=== PATIENT | male | born 1965 | race Caucasian/White ===

== ENCOUNTER → 2017-09-13 15:09 | Outpatient (CLI) | payer BC, SELFPAY ==
[2017-09-13 16:04] LABS: Free T4 (Free Thyroxine) 1.25 ng/dl (0.76-1.46); Thyroid Stimulating Hormone 0.61 uIU/ml (0.358-3.740)
[2017-09-17 17:12] LABS: Calcitonin <2.0 pg/mL (0.0-8.4)
== END ==
PROVIDERS: PCP Otolaryngology; Visit Provider Otolaryngology
DX: E03.9 Hypothyroidism, unspecified (principal)
CPT/HCPCS: 36415; 82308; 84439; 84443

== ENCOUNTER → 2017-10-05 08:25 | Outpatient (CLI) | payer BC, SELFPAY ==
[2017-10-05 09:13] LABS: Creatinine,Urine Random 283 mg/dL (20-320)
[2017-10-05 09:50] LABS: Anion Gap 13.9 mEq/L (5-15); Blood Urea Nitrogen 14 mg/dL (7-18); Carbon Dioxide 27 mmol/L (21.0-32.0); Chloride 105 mmol/L (98-107); Chol/HDL Ratio 4.8 (1-3.5); Cholesterol 220 mg/dL (140-200); Creatinine,Serum 0.89 mg/dL (0.70-1.30); Estimated Glomerular Filt Rate 90 ml/min (>60); GFR (African American) 109 ML/MIN (>60); Glucose 94 mg/dL (74-106); HDL Cholesterol 46 mg/dL (27-67); LDL Cholesterol 151 mg/dL (0-130); Potassium 4.9 mmoL/L (3.5-5.1); Sodium 141 mmol/L (136-145); Triglycerides 113 mg/dL (30-200); VLDL Cholesterol 23 mg/dL (0-40)
[2017-10-08 10:52] LABS: Vitamin D 25 Hydroxy 34.4 ng/mL (30.0-100.0)
[2017-10-08 10:54] LABS: Microalbumin, Urine 11.5 ug/mL (Not Estab.)
== END ==
PROVIDERS: PCP Family Medicine; Visit Provider Family Medicine
DX: I10 Essential (primary) hypertension (principal); E78.2 Mixed hyperlipidemia; Z86.39 Personal history of other endocrine, nutritional and metabolic disease
CPT/HCPCS: 36415; 80048; 80061; 82043; 82570; 82652

== ENCOUNTER 2017-11-08 09:29 | Day surgery (SDC) | payer BC, SELFPAY ==
[2017-11-02 15:42] VITALS: BMI 27.1
[2017-11-08] VITALS (12 sets, daily range): BP systolic 100–138; BP diastolic 63–88; PULSE 69–86; RESP 16–18; TEMP 36.6; O2SAT 92–99
--- NOTE | 2017-11-08 11:28 | HMH.PROC ---
[facility] Procedure Note Procedure Note:: Colonoscopy Procedure Report: Colonoscopy with cold snare polypectomy Endoscopist: Otoniel Fox II, MD Referring physician: Dada Tesfaye MD Date of Procedure: November 08, 2017 Equipment: Olympus 180 variable stiffness pediatric colonoscope Sedation: Fentanyl 150 mg IV/ Versed 9 mg IV Indication: Mr. Olsen is a 52-year-old gentleman who is here for initial screening colonoscopy. He reports no abdominal pain, weight loss, change in his bowel habits or rectal bleeding. He reports no family history of colon cancer. Procedure: Prior to the procedure, a history and physical exam was performed, and patient's medications and allergies were reviewed. The risks, benefits and alternatives of the sedation and procedure were discussed with the patient. All questions were answered and informed consent was obtained. The patient was brought to the procedure room. Patient identification and proposed procedure were verified by the physician and the nurse. The patient was placed in a left lateral decubitus position and the scope was passed under direct vision. Throughout the procedure, the patient's blood pressure, pulse, and oxygen saturations were monitored continuously. The colonoscopy was accomplished without difficulty. The patient tolerated the procedure well. Findings: On digital rectal examination there was normal rectal tone. There were no external hemorrhoids. The prostate was 2+, smooth, mildly firm but symmetric without nodules. The colonoscope was introduced through the anal canal to the rectum and advanced to the cecum. The ileocecal valve and appendiceal orifice were identified. The scope was advanced a short distance into the ileum which appeared grossly normal. The scope was then withdrawn into the colon. There were 3 diminutive colon polyps identified in the 3-5 mm. These ranged in size from ascending ?1 and descending ?2 and were all removed via cold snare polypectomy. The remaining cecum, ascending, transverse, descending, sigmoid and rectum were grossly normal. There were no other mucosal abnormalities identified. Upon retroflexion within the rectum there were grade 1 internal hemorrhoids. Impression: 1. Diminutive colonic polyps ?3 2. Grade 1 internal hemorrhoids Plan: I will follow up the polyp pathology and recommend repeat colonoscopy again in 5-10 years based upon the polyp histology. I would encourage fiber supplementation on a long-term daily maintenance basis.
--- NOTE | 2017-11-08 11:31 | P.PCN_ITS ---
[facility] Procedure Note Procedure Note:: Colonoscopy Procedure Report: Colonoscopy with cold snare polypectomy Endoscopist: Otoniel Fox II, MD Referring physician: Dada Tesfaye MD Date of Procedure: November 08, 2017 Equipment: Olympus 180 variable stiffness pediatric colonoscope Sedation: Fentanyl 150 mg IV/ Versed 9 mg IV Indication: Mr. Olsen is a 52-year-old gentleman who is here for initial screening colonoscopy. He reports no abdominal pain, weight loss, change in his bowel habits or rectal bleeding. He reports no family history of colon cancer. Procedure: Prior to the procedure, a history and physical exam was performed, and patient' s medications and allergies were reviewed. The risks, benefits and alternatives of the sedation and procedure were discussed with the patient. All questions were answered and informed consent was obtained. The patient was brought to the procedure room. Patient identification and proposed procedure were verified by the physician and the nurse. The patient was placed in a left lateral decubitus position and the scope was passed under direct vision. Throughout the procedure, the patient's blood pressure, pulse, and oxygen saturations were monitored continuously. The colonoscopy was accomplished without difficulty. The patient tolerated the procedure well. Findings: On digital rectal examination there was normal rectal tone. There were no external hemorrhoids. The prostate was 2+, smooth, mildly firm but symmetric without nodules. The colonoscope was introduced through the anal canal to the rectum and advanced to the cecum. The ileocecal valve and appendiceal orifice were identified. The scope was advanced a short distance into the ileum which appeared grossly normal. The scope was then withdrawn into the colon. There were 3 diminutive colon polyps identified in the 3-5 mm. These ranged in size from ascending ?1 and descending ?2 and were all removed via cold snare polypectomy. The remaining cecum, ascending, transverse, descending, sigmoid and rectum were grossly normal. There were no other mucosal abnormalities identified. Upon retroflexion within the rectum there were grade 1 internal hemorrhoids. Impression: 1. Diminutive colonic polyps ?3 2. Grade 1 internal hemorrhoids Plan: I will follow up the polyp pathology and recommend repeat colonoscopy again in 5 -10 years based upon the polyp histology. I would encourage fiber supplementation on a long-term daily maintenance basis.
== END 2017-11-08 12:15 | disposition home or self-care (01) ==
LOC: OUTP 09:31
PROVIDERS: Family Provider Family Medicine; PCP Family Medicine; Visit Provider Internal Medicine Gastroenterology
PROC: 0DJD8ZZ Inspection of Lower Intestinal Tract, Via Natural or Artificial Opening Endoscopic (ICD-10-PCS; CPT 45378; principal; 2017-11-08 10:30)
DX: Z12.11 Encounter for screening for malignant neoplasm of colon (principal); K63.5 Polyp of colon; K64.0 First degree hemorrhoids
CPT/HCPCS: 45380; 99152

== ENCOUNTER 2017-11-24 13:55 | Emergency (ER) | payer OTHER, BC, SELFPAY ==
--- NOTE | 2017-11-24 14:15 | XR_ITS ---
XR hand LT min 3V HISTORY: Pain following injury ITS.REASON: injury ORDERING PHYSICIAN: Gail Juarez PATIENT AGE: 52 years COMPARISON: None FINDINGS: No fracture or dislocation. No lytic or blastic change. There is normal mineralization.. The joint spaces are well-preserved. No significant degenerative/arthritic changes. Subarticular cystic changes are present involving the scaphoid, lunate, distal aspect of the third metacarpal, and distal aspect of the middle phalanx of the third digit. IMPRESSION: 1. No acute fracture. 2. Scattered subarticular cystic changes
[2017-11-24 14:16] VITALS: BP 136/91; PULSE 83; RESP 18; TEMP 36.8; O2SAT 94; BMI 27.1
--- NOTE | 2017-11-24 14:38 | HMH.EDUTC ---
[facility] [place] Disposition Clinical Impression: Contusion of left hand Qualifiers: Encounter type: initial encounter Qualified Code(s): S60.222A - Contusion of left hand, initial encounter Abrasion of left hand Qualifiers: Encounter type: initial encounter Qualified Code(s): S60.512A - Abrasion of left hand, initial encounter Disposition: Home, Self-Care Condition on Discharge: Good Instructions: DI for Contusion, DI for Abrasion, Tetanus, Diphtheria, Pertussis (Tdap) Vaccine Additional Instructions: * use as tolerated. No restrictions. See workman's comp form * Rest * ice 15-20 mins 3-4 times a day * Elevate as discussed as much as possible to help reduce swelling and therefore, pain * Ibuprofen every 6 hours as needed for pain and inflammation. If you need something more, you can take tylenol every 4 hours as needed as long as your primary care provider has told you it is ok to take both. * Clean with mild soap and water. Uncovered at home but a work or if working at home, keep covered to avoid risk for infection. * Monitor closely. FU immediately for new or worsening symptoms ( including but not limited to redness, swelling, red streaking, fever, chills). * YOU HAD A TDAP VACCINE, 11/24/17. Notify your primary care and update your personal records. Referrals: Dada Tesfaye MD [Primary Care Provider] - (as needed for new or worsening symptoms. Should resolve/heal over the next 7 days and if not, be sure to follow up.) Time of Disposition: 15:24 Medical Decision Making - [place] Inquiry Pt receiving controlled substance: No Vital Signs: 11/24/17 14:16 11/24/17 15:25 Temperature 98.2 F 98.2 F Temperature Source Temporal Artery Scan Pulse Rate 83 Pulse Rate [Brachial] 83 Respiratory Rate 18 18 Blood Pressure 136/91 Blood Pressure [Right Arm] 136/91 Blood Pressure Mean [Right Arm] 106 Blood Pressure Position [Right Arm] Sitting 02 Sat by Pulse Oximetry 94 L Oxygen Delivery Method Room Air Orders (Tests/Meds): ED MEDICATIONS Discontinued Medications Generic Name Dose Route Start Last Admin Trade Name Freq PRN Reason Stop Dose Admin Tetanus/Reduced Diphtheria/Acell Pertussis 0.5 ml 11/24/17 14:39 11/24/17 14:48 Adacel Tdap 0.5ml Syringe IM 11/24/17 14:40 0.5 ml .ONCE ONE Administration [facility] [place] HPI - General Stated complaint: Workers comp/hit hammer on hand Time Seen by Provider: 11/24/17 14:20 Mode of Arrival: Ambulatory Source of Information: Patient Limitations: No Limitations Description of Symptoms (Recalled from Triage Doc. by RN): INJURY TP LEFT HAND FROM HITTING IT WITH A HAMMER WHILE AT WORK. OCCURRED AROUND 1145, SWELLING AND SMALL ABRASION NOTED. HEENT Symptoms (Recalled from RN notes): No Resp Symptoms (Recalled from RN notes): No Skin Symptoms (Recalled from RN notes): No MS Symptoms (Recalled from RN notes): Yes Functional Status (Recalled from RN notes): NA - History of Present Illness Provider Complaint: c/o left hand pain after hitting it with a hammer today at work aroud 11:45. Hammer caused abrasion. Washed hands around 15-20 minutes following injury. Mild pain. Worse finger movement but still not bad . Hasn't taken or tried anything for pain. Workmen's comp. - Related Data Home Medications Medication Instructions Recorded Confirmed levothyroxine 125 mcg tablet 125 mcg PO QDAY tab 09/13/17 11/08/17 lisinopril 5 mg tablet 5 mg PO QDAY 09/13/17 11/08/17 Atorvastatin Calcium [Atorvastatin 40 mg PO DAILY 11/02/17 11/08/17 40mg Tab] Multivitamin [Multivitamins] 1 each PO DAILY 11/02/17 11/08/17 Allergies Allergy/AdvReac Type Severity Reaction Status Date / Time hydrocodone AdvReac Unknown CONSTIPATION Verified 11/08/17 09:48 (NORMAL SIDE EFFECT) - Worker's Comp Is this a Worker's Comp case?: Yes Is this an H Worker's Comp?: No Is this a [place] Worker's Comp?: No [facility] History I have reviewed the patient's past medical his
[2017-11-24 15:25] VITALS: BP 136/91; PULSE 83; RESP 18; TEMP 36.8; O2SAT 94
== END 2017-11-24 15:26 | disposition home or self-care (01) ==
PROVIDERS: Emergency Provider Nurse Practitioner Family; Family Provider Family Medicine; PCP Family Medicine
DX: S60.222A Contusion of left hand, initial encounter (principal); S60.512A Abrasion of left hand, initial encounter; Z23 Encounter for immunization; W22.8XXA Striking against or struck by other objects, initial encounter; Y92.69 Other specified industrial and construction area as the place of occurrence of the external cause; Y99.0 Civilian activity done for income or pay
CPT/HCPCS: 73130; 90471; 90715; 99201

== ENCOUNTER → 2018-01-18 06:17 | Outpatient (CLI) | payer BC, SELFPAY ==
[2018-01-18 07:00] LABS: Alanine Aminotransferase 42 U/L (12-78); Albumin Level 3.6 gm/dL (3.4-5.0); Alkaline Phosphatase 68 U/L (46-116); Aspartate Amino Transferase 22 U/L (15-37); Bilirubin,Direct 0.1 mg/dL (0.0-0.2); Bilirubin,Indirect 0.3 mg/dL (0.0-0.9); Bilirubin,Total 0.4 mg/dL (0.2-1.0); Chol/HDL Ratio 3.6 (1-3.5); Cholesterol 153 mg/dL (140-200); HDL Cholesterol 43 mg/dL (27-67); LDL Cholesterol 97 mg/dL (0-130); Total Protein,Serum 7.1 gm/dL (6.4-8.2); Triglycerides 67 mg/dL (30-200); VLDL Cholesterol 13 mg/dL (0-40)
== END ==
PROVIDERS: Visit Provider Family Medicine
DX: E78.2 Mixed hyperlipidemia (principal)
CPT/HCPCS: 36415; 80061; 80076

== ENCOUNTER → 2018-06-20 16:08 | Outpatient (CLI) | payer BC, SELFPAY ==
[2018-06-20 18:45] LABS: Free Thyroxine Index 3.1 ug/dL (5.93-13.13); T4 (Thyroxine) 9.8 ug/dl (4.7-13.3); Triiodothryronine (T3) Uptake 32 % (31-39)
[2018-06-22 13:56] LABS: Parathyroid Hormone Intact 32 pg/mL (15-65)
[2018-06-22 14:39] LABS: Calcium, Ionized 5.2 mg/dL (4.5-5.6)
== END ==
PROVIDERS: Family Provider Family Medicine; PCP Family Medicine; Visit Provider Otolaryngology
DX: D49.7 Neoplasm of unspecified behavior of endocrine glands and other parts of nervous system (principal); E03.9 Hypothyroidism, unspecified
CPT/HCPCS: 36415; 82330; 83970; 84436; 84443; 84479

== ENCOUNTER → 2018-06-21 15:53 | Outpatient (CLI) | payer BC, SELFPAY ==
--- NOTE | 2018-06-21 15:54 | XR_ITS ---
XR KUB HISTORY: ITS.REASON: Kidney Stones ORDERING PHYSICIAN: Jermain España MD PATIENT AGE: 53 years COMPARISON: None FINDINGS: The bowel gas pattern is unremarkable. No obvious obstruction.. There is a 3 mm stone overlying the mid and the lower pole the right kidney 3 mm stone in the mid polar region of the left kidney and a 2 mm stone overlying the lower pole of the left kidney. There is an irregular calcific density left pelvic region suspicious for distal ureteral stone. IMPRESSION: 1. Bilateral nephrolithiasis. 2. 6 mm calcific density left pelvic region suspicious for a distal ureteral stone
== END ==
PROVIDERS: PCP Family Medicine; Visit Provider Urology
DX: N20.0 Calculus of kidney (principal)
CPT/HCPCS: 74018

== ENCOUNTER → 2018-07-12 11:14 | Outpatient (CLI) | payer BC, SELFPAY ==
[2018-07-12 14:13] LABS: Prostate Specific Ag Screen 1.4 ng/mL (0.0-4.0)
== END ==
PROVIDERS: Visit Provider Urology
DX: Z80.42 Family history of malignant neoplasm of prostate (principal)
CPT/HCPCS: 36415; G0103

== ENCOUNTER → 2019-02-21 09:37 | Outpatient (CLI) | payer BC, SELFPAY ==
--- NOTE | 2019-02-21 09:43 | XR_ITS ---
XR KUB HISTORY: ITS.REASON: KIDNEY STONES ORDERING PHYSICIAN: Jermain España MD PATIENT AGE: 54 years COMPARISON: 06/21/2018 FINDINGS: There are multiple bilateral renal calculi. The largest stone on the right is in the upper pole at 4 mm. Multiple punctate stones on the left are present from 2 to 3 mm. No obvious ureteral calculi. There is mild sclerosis of left SI joint. IMPRESSION: Bilateral nephrolithiasis probably not significant changed
== END ==
PROVIDERS: PCP Family Medicine; Visit Provider Urology
DX: N20.0 Calculus of kidney (principal)
CPT/HCPCS: 74018

== ENCOUNTER → 2019-07-10 15:37 | Outpatient (CLI) | payer BC, SELFPAY ==
[2019-07-10 18:25] LABS: Free T4 (Free Thyroxine) 1.34 ng/dl (0.76-1.46); Thyroid Stimulating Hormone 0.04 uIU/ml (0.358-3.740)
== END ==
PROVIDERS: Visit Provider Otolaryngology
DX: E03.9 Hypothyroidism, unspecified (principal)
CPT/HCPCS: 36415; 84439; 84443

== ENCOUNTER → 2020-08-13 12:27 | Outpatient (CLI) | payer BC, SELFPAY ==
[2020-08-13 14:06] LABS: Prostate Specific Ag Screen 1.4 ng/ml (0.0-4.0)
--- NOTE | 2020-08-13 15:39 | XR_ITS ---
PROCEDURE: XR KUB CLINICAL INDICATION: KIDNEY STONE Left flank pain with nausea COMPARISON: CT ABDPELWO CT abdomen pelvis wo con from 06/14/2018 FINDINGS: Multiple stones are present in the mid and lower pole of the left kidney and mid polar region of the right kidney measuring 2 3 mm on the left and 4 mm on the right. There is a small calcific density in the right pelvic region which could be due to a ureterovesical junction stone.. Prostate calcifications are present. There are degenerative changes in the lumbar spine and there is some sclerosis of the left SI joint IMPRESSION: Bilateral nephrolithiasis with possible small right ureterovesical junction stone versus phleboliths Dictated by: Donn Warner MD 08/13/2020 16:33 Donn Warner MD in [place] 08/13/2020 16:33
== END ==
PROVIDERS: PCP Family Medicine; Visit Provider Urology
DX: Z12.5 Encounter for screening for malignant neoplasm of prostate (principal); N20.0 Calculus of kidney
CPT/HCPCS: 36415; 74018; G0103

== ENCOUNTER → 2020-10-28 12:10 | Outpatient (CLI) | payer BC, SELFPAY ==
[2020-10-28 14:30] LABS: Free T4 (Free Thyroxine) 1.04 ng/dl (0.78-2.19)
== END ==
PROVIDERS: Visit Provider Otolaryngology
DX: E03.9 Hypothyroidism, unspecified (principal)
CPT/HCPCS: 84439; 84443

== ENCOUNTER → 2021-04-28 12:43 | Outpatient (CLI) | payer BC, SELFPAY ==
[2021-04-28 13:44] LABS: Thyroid Stimulating Hormone 2.19 uIU/mL (0.465-4.68)
[2021-04-28 14:25] LABS: Free T4 (Free Thyroxine) 1.12 ng/dl (0.78-2.19)
== END ==
PROVIDERS: Visit Provider Otolaryngology
DX: E03.9 Hypothyroidism, unspecified (principal)
CPT/HCPCS: 36415; 84439; 84443

== ENCOUNTER → 2021-05-30 11:30 | Outpatient (CLI) | payer BC, SELFPAY ==
[2021-05-30 12:59] LABS: Alanine Aminotransferase 28 U/L (12-78); Albumin Level 4.3 g/dl (3.5-5.0); Albumin/Globulin Ratio 1.5 (1.1-1.8); Alkaline Phosphatase 62 U/L (38-126); Aspartate Amino Transferase 34 U/L (17-59); Bilirubin,Total 0.7 mg/dl (0.2-1.3); Blood Urea Nitrogen 18 mg/dl (9-20); Calcium 9.5 mg/dl (8.4-10.2); Carbon Dioxide 29 mmol/L (22.0-30.0); Chloride 101 mmol/L (98-107); Chol/HDL Ratio 3.1 (1-3.5); Cholesterol 166 mg/dl (140-200); Estimated Glomerular Filt Rate 78 ml/min (>60); GFR (African American) 94 ML/MIN (>60); Globulin 2.8 g/dL (1.3-3.2); Glucose 94 mg/dl (74-100); HDL Cholesterol 53 mg/dl (40-60); Sodium 139 mmol/L (136-145); Total Protein,Serum 7.1 g/dl (6.3-8.2); Triglycerides 63 mg/dl (30-150); VLDL Cholesterol 13 mg/dL (0-40)
[2021-05-30 13:10] LABS: Direct LDL Cholesterol 92.74 mg/dL (100-129)
[2021-05-30 13:29] LABS: Prostate Specific Ag Screen 1.4 ng/ml (0.0-4.0)
== END ==
PROVIDERS: Visit Provider Nurse Practitioner Family
DX: I10 Essential (primary) hypertension (principal); E78.5 Hyperlipidemia, unspecified; Z12.5 Encounter for screening for malignant neoplasm of prostate
CPT/HCPCS: 36415; 80053; 80061; G0103

== ENCOUNTER 2021-06-02 20:17 | Emergency (ER) | payer BC, SELFPAY ==
[2021-06-02 20:45] VITALS: BP 118/79; PULSE 77; RESP 20; TEMP 36.9; O2SAT 98; BMI 25.0
--- NOTE | 2021-06-02 21:34 | HMH.EDUTC ---
[facility] [place] Clinical Impression: Viral syndrome Disposition: Home, Self-Care Condition on Discharge: Good Instructions: DI for Viral Syndrome, DI for COVID-19 (Suspected or Confirmed ), Preventing the Spread of Coronavirus Discharge Instructions Additional Instructions: *Monitor Temp, Over the counter Motrin or Tylenol as directed/as needed Tylenol every 4 hours and Motrin every 6 hours (as long as your family doctor has told you that you can take it) for fever or pain. and straight to ER if unable to lower temp less than 101.0 after medication given *Warm salt water gargles may help to soothe the throat *Throat Lozenges *Warm fluids like tea with honey may help to soothe the throat *Sleep elevated *Humidifier/Vaporizer Follow up IMMEDIATELY for new or worsening symptoms or no Noticeable improvement over the next 48-72 hours. 911 for difficulty breathing or swallowing You were tested for today for COVID19 your test result should be back in the next 24-48 hours, you was given handout on how to [facility] to check your results if you have trouble you may call the [facility] You was given a handout with instructions for Self Quarantine and Self isolation for while you wait on test results and what to do if they are positive If you are positive the Health Dept will be contacting you also Make sure to take your Vitamins Vit. C Vit D and Zinc if you can take them Referrals: Dada Tesfaye MD [Primary Care Provider] - As needed Forms: Work/School Release Time of Disposition: 21:37 Medical Decision Making - [place] Inquiry Pt receiving controlled substance: No [place] was queried for this patient: No Vital Signs: 06/02/21 20:45 Temperature 98.4 F Temperature Source Oral Pulse Rate [Right Brachial] 77 Respiratory Rate 20 Blood Pressure [Right Arm] 118/79 Blood Pressure Mean [Right Arm] 92 Blood Pressure Source [Right Arm] Automatic Cuff Blood Pressure Position [Right Arm] Sitting 02 Sat by Pulse Oximetry 98 Oxygen Delivery Method Room Air - Lab Data Lab results reviewed: Yes: I reviewed the patient's lab results. Lab Results 06/02/21 21:49: Influenza Type A Ag Negative, Influenza Type B Ag Negative Orders (Tests/Meds): ORDERS Category Date Time Status Covid-19 Nasal PCR ([facility]) Routine Lab 06/02/21 20:50 Received [facility] [place] HPI - General Stated complaint: covid test, body aches Time Seen by Provider: 06/02/21 21:34 Mode of Arrival: Ambulatory Source of Information: Patient Limitations: No Limitations Description of Symptoms (Recalled from Triage Doc. by RN): PATIENT C/O BODY ACHES, CHILLS, AND LOW-GRADE FEVER. REQUESTING COVID TEST HEENT Symptoms (Recalled from RN notes): No Resp Symptoms (Recalled from RN notes): No Skin Symptoms (Recalled from RN notes): No MS Symptoms (Recalled from RN notes): No Functional Status (Recalled from RN notes): WNL - History of Present Illness Provider Complaint: Patient states that he has been having body aches, chills, and feels like he is getting the flu States that he has not been around anyone that he is aware of with COVID but not sure so he wanted to get tested for COVID and flu - Related Data Home Medications Medication Instructions Recorded Confirmed lisinopril 5 mg tablet 5 mg PO DAILY 09/13/17 05/05/21 atorvastatin 10 mg tablet PO 90 Days #90 tab 08/04/18 05/05/21 Previous Rx's Medication Instructions Recorded levothyroxine 100 mcg tablet 100 mcg PO DAILY #90 tab 05/05/21 Allergies Allergy/AdvReac Type Severity Reaction Status Date / Time hydrocodone AdvReac Unknown CONSTIPATION Verified 05/05/21 15:49 (NORMAL SIDE EFFECT) - Worker's Comp Is this a Worker's Comp case?: No [facility] History - Hepatitis A Screen Drug use history?: No High risk sexual behaviors?: No History of sexually transmitted infection?: No Currently employed?: No Childcare worker?: No Do you have indoor plumbing?: Yes Do y
[2021-06-02 21:49] LABS: UTC Influenza A Antigen Negative (Negative); UTC Influenza B Antigen Negative (Negative)
[2021-06-02 21:55] VITALS: BP 118/79; PULSE 77; RESP 20; TEMP 36.9; O2SAT 98
== END 2021-06-02 22:01 | disposition home or self-care (01) ==
PROVIDERS: Emergency Provider Nurse Practitioner; PCP Family Medicine
DX: U07.1 COVID-19 (principal); B34.9 Viral infection, unspecified; I10 Essential (primary) hypertension; E78.5 Hyperlipidemia, unspecified
CPT/HCPCS: 87804; 99202; C9803; G0463; U0003; U0005

== ENCOUNTER → 2021-09-10 15:18 | Outpatient (CLI) | payer BC, SELFPAY ==
[2021-10-31 21:00] LABS: Ca oxalate dihydrate 20
== END ==
PROVIDERS: Visit Provider Urology
DX: N20.0 Calculus of kidney (principal)
CPT/HCPCS: 82370

== ENCOUNTER 2022-12-25 08:25 | Day surgery (SDC) | payer BC, SELFPAY ==
[2022-12-22 11:47] VITALS: BMI 26.4
[2022-12-25 08:53] VITALS: BP 125/75; PULSE 67; RESP 18; TEMP 36.6; O2SAT 96
--- NOTE | 2022-12-25 09:06 | EXP.ANES.CKL ---
[facility] Disclaimer: The information contained in this section may have been updated after the patient was seen, as this information can be updated by other users. Medical History Allergies Cholecystectomy planned History of COVID-19 History of gastroesophageal reflux (GERD) Hyperlipidemia Hypertension Hypothyroid Kidney stone Proctitis Surgical History H/O lithotripsy H/O thyroidectomy H/O: vasectomy History of appendectomy Family History Father Prostate cancer Lung cancer Mother Heart disease Social History Smoking Status: Former smoker alcohol intake: current substance use type: denies use current occupational status: employed Travel in the last 8 weeks: None household members: family housing: house caffeine: No [facility] Anesthesia Checklist Patient Identification Patient Identification: Arm Band and Family Structural Data Admitted From: Home Planned Operative Procedure/s: Colonoscopy Consent for Planned Operative Procedure(s) Verified: Yes NPO Status Verified Time NPO: 00:00 Additional verifications Patient : No Anesthesia Reactions: Yes (urination difficulty after procedure) Hx Blood Transfusions: No Airway Assessment C-Spine Mobility Assessed: Yes TMJ Mobility Assessed: Yes Dentition: Good Dentition Neurological Assessment Level of Consciousness: Awake, Alert, Appropriate and Follows Commands Hx Seizures: No Numbness or tingling in extremities: No Anesthesia Plan Anesthesia Risk discussed: Yes ASA Class: II Anesthesia Type: MAC Preoperative Comments Pre-Operative Comments: Hypertension. History of Polyps. Hypothyroid. History of Kidney stones. History of urinary retention status post anesthesia x1.
[2022-12-25 09:09] VITALS: O2SAT 96
--- NOTE | 2022-12-25 09:23 | P.PN_ITS ---
[facility] Disclaimer: The information contained in this section may have been updated after the patient was seen, as this information can be updated by other users. Medical History Allergies Cholecystectomy planned History of COVID-19 History of gastroesophageal reflux (GERD) Hyperlipidemia Hypertension Hypothyroid Kidney stone Proctitis Surgical History H/O lithotripsy H/O thyroidectomy H/O: vasectomy History of appendectomy Family History Father Prostate cancer Lung cancer Mother Heart disease Social History Smoking Status: Former smoker alcohol intake: current substance use type: denies use current occupational status: employed Travel in the last 8 weeks: None household members: family housing: house caffeine: No [facility] Anesthesia Checklist Patient Identification Patient Identification: Arm Band Structural Data Admitted From: Home Planned Operative Procedure/s: colonoscopy Consent for Planned Operative Procedure(s) Verified: Yes Verified Documents: Surgical Consent and History and Physical NPO Status Verified Time NPO: 00:00 Additional verifications Anesthesia Reactions: Yes (urination difficulty after procedure) Hx Blood Transfusions: No Airway Assessment C-Spine Mobility Assessed: Yes TMJ Mobility Assessed: Yes Neurological Assessment Level of Consciousness: Awake and Alert Anesthesia Plan Anesthesia Risk discussed: Yes Anesthesia Plan: Verified ASA Class: II Anesthesia Type: MAC
[2022-12-25 10:05] VITALS: BP 95/66; PULSE 69; RESP 15; TEMP 36.3; O2SAT 91
--- NOTE | 2022-12-25 10:07 | HMH.SCOPE ---
Procedure: Date: 12/25/22 Patient Date of :: 1965 Procedure Performed:: Total colonoscopy to cecum with polypectomy Indications:: Patient is a 57-year-old male who had undergone initial screening colonoscopy with Dr. Fox on 11/08/2017. He had 3 diminutive colon polyps removed. 2 of these were hyperplastic and the ascending colon polyp was a tubular adenoma. Patient presents for follow-up colonoscopy due to history of adenomatous polyps. Performing Provider:: Bernard Farias MD Referring Provider:: Dada Tesfaye MD Sedation:: MAC sedation Procedure:: Patient history was obtained and appropriate physical examination was performed. Patient's medications and allergies were reviewed. Informed consent was obtained after explaining the benefits, alternatives, and risks of the procedure including, but not limited to, bleeding, perforation, missed lesions, and adverse reaction to anesthesia medications. Patient was transported to endoscopy procedure room. Patient was connected to monitoring devices. Throughout the procedure the patient's blood pressure, pulse, and oxygen saturations were monitored continuously. Patient identification and planned procedure were verified by the staff. Patient was positioned in lateral decubitus position. Digital anorectal exam was performed. Variable stiffness Olympus colonoscope was inserted and advanced under direct visualization to the cecum. Adequacy of the colonic preparation was noted. The colonoscope was not advanced into the terminal ileum. The colonoscope was then slowly withdrawn while carefully examining the color, texture, anatomy, and integrity of the mucosoa circumferentially. Within the rectum retroflexion was performed. Colonoscope was then withdrawn. Colonic preparation was adequate although there was some particulate liquid stool. Near the splenic flexure there was a tiny diminutive polyp removed with snare. There was a very subtle diminutive minuscule polyp in the descending colon which was removed with cold snare. This was unable to be definitively retrieved despite reinsertion and withdrawal of the colonoscope. However, at the completion of the procedure a tiny polyp was noted within the colonoscope and this was sent as random colon polyp . There was a small diminutive polyp in the sigmoid colon removed in a piecemeal fashion using biopsy. Distal sigmoid polyp was removed with cold biopsy. In the rectosigmoid region there were 2 small polyps removed initially with snare with residual tissue removed with biopsy forceps and sent as rectosigmoid polyps. In the rectal region there were a couple of diminutive polyps, hyperplastic appearing, removed with biopsy forceps. Findings:: He had a total of 9 polyps removed. These were diminutive in size. Rare small sigmoid diverticulosis Recommendations:: Repeat colonoscopy pending pathology. Likely 3 to 5 years. Complications:: None immediately apparent Estimated blood obtained (mL): 2
[2022-12-25 10:15] VITALS: BP 101/61; PULSE 66; RESP 16; O2SAT 92
[2022-12-25 10:25] VITALS: BP 104/65; PULSE 58; RESP 16; O2SAT 95
[2022-12-25 10:35] VITALS: BP 111/74; PULSE 64; RESP 18; TEMP 36.6; O2SAT 97
== END 2022-12-25 10:35 | disposition home or self-care (01) ==
PROVIDERS: PCP Family Medicine; Visit Provider Surgery
PROC: 0DJD8ZZ Inspection of Lower Intestinal Tract, Via Natural or Artificial Opening Endoscopic (ICD-10-PCS; CPT 45380; principal; 2022-12-25 09:30)
DX: Z12.11 Encounter for screening for malignant neoplasm of colon (principal); Z86.010 Personal history of colon polyps; D12.5 Benign neoplasm of sigmoid colon; D12.7 Benign neoplasm of rectosigmoid junction; Z79.899 Other long term (current) drug therapy; K57.30 Diverticulosis of large intestine without perforation or abscess without bleeding
CPT/HCPCS: 45380; 45385; J2704

== ENCOUNTER → 2023-03-30 10:05 | Outpatient (CLI) | payer BC, SELFPAY ==
--- NOTE | 2023-03-30 10:12 | CT_ITS ---
FINAL REPORT TECHNIQUE: Noncontrast exam CLINICAL HISTORY: H/O KIDNEY STONES, flank pain COMPARISON: June 2018 FINDINGS: Abdomen: Lung bases are clear. Prior cholecystectomy. Liver, spleen, pancreas and adrenal glands have a normal CT appearance in their limited unenhanced state. The kidneys show bilateral nonobstructing renal stones. No hydronephrosis. No obvious renal mass is present. No ureteral stones are present. Pelvis: No distal ureteral stones are seen. Mild prostate enlargement. Bladder wall thickening with stranding raising the question of cystitis or prostatitis. No fluid collection or adenopathy is seen. Appendix not identified. IMPRESSION: Bilateral nephrolithiasis. Bladder wall thickening with stranding which may be seen with cystitis. Reviewed, Interpreted and Dictated by Makayla Downing MD Transcribed by Felipe Rahman Authenticated and [facility]
== END ==
PROVIDERS: PCP Family Medicine; Visit Provider Nurse Practitioner Family
DX: Z87.442 Personal history of urinary calculi (principal)
CPT/HCPCS: 74176

== ENCOUNTER 2023-03-31 22:58 | Emergency (ER) | payer BC, SELFPAY ==
[2023-03-31 23:00] VITALS: BP 142/89; PULSE 85; RESP 16; TEMP 36.7; O2SAT 96; BMI 27.1
[2023-03-31 23:20] LABS: Microscopic, Urine URINE MICROSCOPIC (MICROSCOPIC)
[2023-03-31 23:22] LABS: Appearance,Urine CLEAR (Clear); Bilirubin,Urine Negative (Negative); Blood, Urine 2+ (Negative); Color,Urine YELLOW (Yellow); Glucose,Urine (UA) Negative (Negative); Ketones,Urine Negative (Negative); Leukocyte Esterase,Urine 1+ (Negative); Nitrate,Urine POSITIVE (Negative); Protein,Urine TRACE (Negative); Specific Gravity, Urine 1.025 (1.005-1.030)
--- NOTE | 2023-03-31 23:22 | HMH.EDGENADL ---
Discharge Plan Disposition Patient Disposition: Home, Self-Care Condition: Good Prescriptions Prescriptions: No Action atorvastatin 10 mg tablet 10 mg PO DAILY 90 Days Qty: 90 lisinopril 5 mg tablet 5 mg PO DAILY levothyroxine 100 mcg tablet 100 mcg PO DAILY peg 3350-electrolytes [Golytely] 236-22.74-6.74 -5.86 gram recon soln 240 ml PO Q10M Rx Instructions: until fecal effluent is clear cholecalciferol (vitamin D3) 100 mcg (4,000 unit) Capsule 100 mcg PO DAILY Referrals Follow up/Referrals: Dada Tesfaye MD [Primary Care Provider] - See instructions Activity Restrictions/Add. Instructions Additional Instructions/Restrictions: Please follow-up with your primary care provider. Please return to the emergency department if you develop any new or worsening symptoms or become concerned for your health. Please continue to take antibiotics as prescribed. Clinical Impressions Clinical Impression: Cystitis Instructions Patient Instructions: DI for Urinary Tract Infection (UTI), DI for Urinary Tract Infection in Children Discharge ED Provider: Oleg Judge Adult HPI General Chief complaint: Urogenital-Male Stated complaint: Cannot urinate; has pain; fever Time Seen by Provider: 03/31/23 23:22 Mode of Arrival: Ambulatory Source of Information: Patient Limitations: No Limitations Description of Symptoms (Recalled from ER Triage Doc. by RN): pt states was diagnosed with UTI by pcp and placed on bactrim,tamsulosin,pyridium,levofloxacin. pt c/o urine urgnecy by not emptying History of Present Illness HPI narrative: 58-year-old male presents to the ER with UTI and possible fever. Patient reports that he was diagnosed with UTI couple of days ago and was placed on Bactrim and Levaquin for possible prostatitis. His PCP arranged a CT scan yesterday which reportedly showed no pyelonephritis or obstructing stones. Patient has had urine cultures but reportedly has not had blood cultures. He was told to present to the hospital if he had fevers or worsening illness. He felt feverish at home today and so came here. On arrival patient's temperature is normal. Patient also reports sensation of incomplete emptying. Denies any other systemic symptoms such as nausea, vomiting, aches, lethargy. Reports no current flank pain. Related Data Home Medications Medication Instructions Recorded Confirmed lisinopril 5 mg tablet 5 mg PO DAILY High blood pressure 09/13/17 12/25/22 atorvastatin 10 mg tablet 10 mg PO DAILY Cholesterol 90 days 08/04/18 12/25/22 #90 tabs cholecalciferol (vitamin D3) 100 100 mcg PO DAILY Supplement 12/22/22 12/25/22 mcg (4,000 unit) capsule levothyroxine 100 mcg tablet 100 mcg PO DAILY THYROID 12/22/22 12/25/22 peg 3350-electrolytes 236 240 ml PO Q10M . 12/22/22 12/25/22 gram-22.74 gram-6.74 gram-5.86 gram solution (Golytely) Allergies Allergy/AdvReac Type Severity Reaction Status Date / Time hydrocodone AdvReac Unknown CONSTIPATION Verified 12/25/22 08:52 (NORMAL SIDE EFFECT) [facility] Disclaimer: The information contained in this section may have been updated after the patient was seen, as this information can be updated by other users. Medical History (Updated 03/31/23 @ 23:51 by Oleg Judge MD) Allergies Cholecystectomy planned History of COVID-19 History of gastroesophageal reflux (GERD) Hyperlipidemia Hypertension Hypothyroid Kidney stone Proctitis Surgical History H/O lithotripsy H/O thyroidectomy H/O: vasectomy History of appendectomy Family History Father Prostate cancer Lung cancer Mother Heart disease Social History Smoking Status: Never smoker alcohol intake: current substance use type: denies use current occupational
--- NOTE | 2023-03-31 23:24 | PC.NURSE ---
Dr. Judge at
--- NOTE | 2023-03-31 23:34 | PC.NURSE ---
bedside bladder scan performed 102ml noted
[2023-03-31 23:44] LABS: Bacteria,Urine Trace /lpf; Squamous Epithelial Cell,Urine Occasional #/hpf (0-5)
[2023-03-31 23:49] VITALS: BP 123/83; PULSE 72; RESP 19; TEMP 36.8; O2SAT 98
--- NOTE | 2023-03-31 23:49 | PC.NURSE ---
Blood cultures drawn and sent to lab. Dr. Judge at [facility]
== END 2023-03-31 23:56 | disposition home or self-care (01) ==
PROVIDERS: Emergency Provider Emergency Medicine; PCP Family Medicine
DX: N30.00 Acute cystitis without hematuria (principal); R33.9 Retention of urine, unspecified; I10 Essential (primary) hypertension; E78.5 Hyperlipidemia, unspecified; E03.9 Hypothyroidism, unspecified
CPT/HCPCS: 81001; 87040; 87086; 99284

== ENCOUNTER 2024-01-30 08:56 | Emergency (ER) | payer BC, SELFPAY ==
[2024-01-30] VITALS (8 sets, daily range): BP systolic 108–155; BP diastolic 75–100; PULSE 60–71; RESP 19–20; TEMP 36.6; O2SAT 95–98; BMI 27.1
--- NOTE | 2024-01-30 09:08 | HMH.EDGENADL ---
Discharge Plan Disposition Patient Disposition: Home, Self-Care Condition: Good Prescriptions Prescriptions: New tamsulosin [Flomax] 0.4 mg capsule 0.4 mg PO DAILY 20 Days Qty: 20 0RF ketorolac 10 mg tablet 10 mg PO Q8H PRN (Reason: pain) 7 Days Qty: 20 0RF No Action atorvastatin 10 mg tablet 10 mg PO DAILY 90 Days Qty: 90 lisinopril 5 mg tablet 5 mg PO DAILY levothyroxine 100 mcg tablet 100 mcg PO DAILY peg 3350-electrolytes [Golytely] 236-22.74-6.74 -5.86 gram recon soln 240 ml PO Q10M Rx Instructions: until fecal effluent is clear cholecalciferol (vitamin D3) 100 mcg (4,000 unit) Capsule 100 mcg PO DAILY Referrals Follow up/Referrals: Dada Tesfaye MD [Primary Care Provider] - See instructions Activity Restrictions/Add. Instructions Additional Instructions/Restrictions: As we discussed, you have a 3 mm stone that is causing some small degree of blockage on your left side, your labs did not show an elevated white count and your kidney function is at its baseline, your urinalysis had some very small degree of white blood cells and very small degree of bacteria although there is some degree likely of contamination as there is mucus in your urinalysis. All this being said, you are very likely to pass the stone on its own and there is not convincing evidence at this time of a infection in conjunction with the stone. I have prescribed a medication called Flomax which should help you pass the stone as well as a medication called ketorolac or Toradol which is a pain medication that is good for kidney stones. Please monitor very closely for signs of infection, please return with any new or worsening symptoms. The medication called Flomax I would recommend he take at night as it can make your blood pressure lower and make you feel lightheaded or weak. Clinical Impressions Clinical Impression: Urolithiasis Discharge ED Provider: Larry Stone Adult HPI General Chief complaint: PAIN Stated complaint: lower back pain Time Seen by Provider: 01/30/24 09:08 History of Present Illness HPI narrative: The patient presents with a chief complaint of difficulty urinating and a history of recurrent kidney stones, experiencing a few episodes per year. He mentions that the current symptoms started recently but does not recall any specific activity that triggered the onset. He describes the pain as similar to past experiences with kidney stones. He also has a history of a bowel obstruction years ago, characterized by abdominal pain, but denies any current symptoms of nausea, vomiting, or blood in the stool. He confirms having a bowel movement earlier this morning. He denies any history of prostate issues or surgeries related to the abdominal region. He rates the current level of pain as manageable after receiving initial medications. Please note that above description of symptoms, in this electronic medical record under categorization of recalled from ER triage doctor by RN are reflective of an initial nursing assessment, however, is not reflective of my full history and physical exam that was personally taken and clarified. Consequentially, this preceding description of symptoms, which may include the patient's categorized chief complaint in the EMR, do not reflect my personal clinical impression, and the ultimate description of history of present illness and patient stated complaints should be deferred to this section of the note. Unless stated otherwise or congruent with this section of the note, additional signs, symptoms, or incongruence should be interpreted as inaccurate with my clinical impression. Related Data Home Medications Medication Instructions Recorded Confirmed lisinopril 5 mg tablet 5 mg PO DAILY High blood pressure 09/13/17 12/25/22 atorvastatin 10 mg tablet 10 mg PO DAILY Cholesterol 90 days 08/04/18 12/25/22 #90 tabs cholecalciferol (vitamin D3) 100 100 mcg PO DAILY Supplement 12/22/22 12/25/22 mcg (4,000 unit) capsule levothyroxine 100 mcg tablet 100 mcg PO DAILY THYROID 12/22/22 12/25/22 peg 3350-electrolytes 236 240 ml PO Q10M . 12/22/22 12/25/22 gram-22.74 gram-6.74 gram-5.86 gram solution (Golytely) Previous Rx's Medication Instructions Recorded ketorolac 10 mg tablet 10 mg PO Q8H PRN pain 7 days #20 01/30/24 tabs tamsulosin 0.4 mg capsule (Flomax) 0.4 mg PO DAILY 20 days #20 caps 01/30/24 Allergies Allergy/AdvReac Type Severity Reaction Status Date / Time hydrocodone AdvReac Unknown CONSTIPATION Verified 12/25/22 08:52 (NORMAL SIDE EFFECT) [facility] Disclaimer: The information contained in this section may have been updated after the patient was seen, as this information can be updated by other users. Medical History (Updated 01/30/24 @ 12:05 by Larry Stone MD) Proctitis Cholecystectomy planned Kidney stone History of COVID-19 History of gastroesophageal reflux (GERD) Hypothyroid Allergies Hyperlipidemia Hypertension Surgical History H/O thyroidectomy H/O: vasectomy H/O lithotripsy History of appendectomy Family History Father Prostate cancer Lung cancer Mother Heart disease Social History Smoking Status: Never smoker alcohol intake: current alcohol intake frequency: a few times a week substance use type: denies use current occupational status: employed Travel in the last 8 weeks: None household members: family housing: house caffeine: No ROS Obtained: Yes other As per HPI Physical Exam General General appearance: alert and in no apparent distress Head Head exam: atraumatic and normocephalic Eye Eye exam: Present normal appearance Neck Neck exam: Present normal inspection Chest Chest inspection: Present normal inspection and symmetric chest wall rise Respiratory Respiratory exam: Present normal lung sounds bilaterally; Absent respiratory distress Cardiovascular Cardiovascular exam: Present regular rate and normal rhythm Abdominal Exam Abdominal exam: Present soft Neurological Exam Neurological exam: Present alert and oriented X3 Psychiatric Psychiatric exam: Present normal affect and normal mood Skin Skin exam: Present warm and dry Other Other exam information: Left CVA tenderness to percussion, abdomen soft, nondistended, no evidence of peritonitis Medical Decision Making Medical Records Medical records reviewed: Yes I reviewed the patient's medical records. [place] Inquiry Pt receiving controlled substance: No Vital Signs: 01/30/24 08:57 01/30/24 09:03 01/30/24 09:30 Temperature 97.8 F Temperature Source Oral Pulse Rate 71 65 Pulse Rate [Right Radial] 71 Respiratory Rate 20 Blood Pressure 154/100 H 118/75 Blood Pressure [Right Arm] 154/100 H Blood Pressure Mean [Right Arm] 118 Blood Pressure Source [Right Arm] Automatic Cuff Blood Pressure Position [Right Arm] Sitting 02 Sat by Pulse Oximetry 97 95 95 Oxygen Delivery Method Room Air Room Air Room Air 01/30/24 10:00 01/30/24 10:30 01/30/24 11:30 Temperature Temperature Source Pulse Rate 64 60 62 Pulse Rate [Right Radial] Respiratory Rate Blood Pressure 108/80 L 114/76 116/78 Blood Pressure [Right Arm] Blood Pressure Mean [Right Arm] Blood Pressure Source [Right Arm] Blood Pressure Position [Right Arm] 02 Sat by Pulse Oximetry 96 96 95 Oxygen Delivery Method Room Air 01/30/24 12:00 01/30/24 12:14 Temperature 97.8 F Temperature Source Oral Pulse Rate 64 67 Pulse Rate [Right Radial] Respiratory Rate 19 Blood Pressure 155/81 H 115/81 Blood Pressure [Right Arm] Blood Pressure Mean [Right Arm] Blood Pressure Source [Right Arm] Blood Pressure Position [Right Arm] 02 Sat by Pulse Oximetry 97 Oxygen Delivery Method Room Air Lab Data Lab Results 01/30/24 09:04: Urine Color Yellow, Urine Appearance Clear, Urine pH 5.5, Ur Specific [place] >= 1.030, Urine Protein Negative, Urine Glucose (UA) Negative, Urine Ketones Negative, Urine Blood 1+, Urine Nitrate Negative, Urine Bilirubin Negative, Urine Urobilinogen 0.2, Ur Leukocyte Esterase Negative, Urine RBC 3-5, Urine WBC Occasional, Uric Acid Crystals 1+, Urine Bacteria Trace, Urine Mucus Trace 01/30/24 09:08: WBC 7.1, RBC 5.53, Hgb 16.0, Hct 49.8, MCV 90.1, MCH 29.0, MCHC 32.2, RDW 14.8, Plt Count 229, MPV 8.2, Neut % (Auto) 58.7, Lymph % (Auto) 29.2, Clinch % (Auto) 6.0, Eos % (Auto) 4.7, Baso % (Auto) 1.3, Neut # (Auto) 4.2, Lymph # (Auto) 2.1, Clinch # (Auto) 0.4, Eos # (Auto) 0.3, Baso # (Auto) 0.1, Sodium 136, Potassium 4.6, Chloride 104, Carbon Dioxide 25, Anion Gap 11.6, BUN 22 H, Creatinine 1.10, Estimated Creat Clear 96, Estimated GFR 69, Est GFR ( Amer) 84, Glucose 113 H, Calcium 9.3, Total Bilirubin 0.6, AST 37, ALT 40, Alkaline Phosphatase 53, Total Protein 7.5, Albumin 4.3, Globulin 3.2, Albumin/Globulin Ratio 1.3 01/30/24 09:08 01/30/24 09:08 Orders (Tests/Meds): ED MEDICATIONS Discontinued Medications Generic Name Dose Route Start Last Admin Trade Name Freq PRN Reason Stop Dose Admin Lactated Ringer's 1,000 mls @ 999 mls/hr 01/30/24 09:15 01/30/24 09:17 Lactated Ringer's 1000 Ml Bag IV 01/30/24 10:15 999 mls/hr .Q1H1M ERIBERTO Administration Ketorolac Tromethamine 30 mg 01/30/24 09:15 01/30/24 09:17 Ketorolac 30mg/Ml Vial IV 01/30/24 09:16 30 mg ONCE ONE Administration Ondansetron HCl 4 mg 01/30/24 09:15 01/30/24 09:17 Ondansetron 4mg/2ml Vial IV 01/30/24 09:16 4 mg ONCE ONE Administration Sodium Chloride 10 ml 01/30/24 09:15 Sodium Chloride 0.9% 10ml Flush Syringe IV 02/29/24 09:14 NEEDED PRN Maintain IV Site ORDERS Category Date Time Status CT abdomen pelvis wo con Stat Cat Scan 01/30/24 09:56 Completed CBC w/Auto Diff [Complete Blood Count Auto Diff] Stat Lab 01/30/24 09:08 Completed CMP [Comprehensive Metabolic Panel] Stat Lab 01/30/24 09:08 Completed Urinalysis and Microscopic Stat Lab 01/30/24 09:04 Completed Urine Culture Stat Micro 01/30/24 09:04 Received Medical Decision Narrative: Patient with history and exam per above presenting for evaluation of left flank pain Diagnoses considered include cystitis, pyelonephritis, urolithiasis, obstruction, diverticulitis, among others ED workup and treatment included: ED MEDICATIONS Discontinued Medications Generic Name Dose Route Start Last Admin Trade Name Freq PRN Reason Stop Dose Admin Lactated Ringer's 1,000 mls @ 999 mls/hr 01/30/24 09:15 01/30/24 09:17 Lactated Ringer's 1000 Ml Bag IV 01/30/24 10:15 999 mls/hr .Q1H1M ERIBERTO Administration Ketorolac Tromethamine 30 mg 01/30/24 09:15 01/30/24 09:17 Ketorolac 30mg/Ml Vial IV 01/30/24 09:16 30 mg ONCE ONE Administration Ondansetron HCl 4 mg 01/30/24 09:15 01/30/24 09:17 Ondansetron 4mg/2ml Vial IV 01/30/24 09:16 4 mg ONCE ONE Administration Sodium Chloride 10 ml 01/30/24 09:15 Sodium Chloride 0.9% 10ml Flush Syringe IV 02/29/24 09:14 NEEDED PRN Maintain IV Site ORDERS Category Date Time Status CT abdomen pelvis wo con Stat Cat Scan 01/30/24 09:56 Completed CBC w/Auto Diff [Complete Blood Count Auto Diff] Stat Lab 01/30/24 09:08 Completed CMP [Comprehensive Metabolic Panel] Stat Lab 01/30/24 09:08 Completed Urinalysis and Microscopic Stat Lab 01/30/24 09:04 Completed Urine Culture Stat Micro 01/30/24 09:04 Received Labs were independently interpreted by me, significant for no leukocytosis, urinalysis with hematuria, minimal pyuria, trace bacteriuria in the setting of trace mucus suggestive of contaminated specimen Imaging was independently visualized and interpreted by me, significant for 3 mm distal stone, mild to moderat hydronephrosis. Please refer to radiology report for full details. My clinical impression at this time is most consistent with urolithiasis, patient reports improvement of symptoms upon repeat evaluation, after shared decision-making is amenable to discharge with close outpatient follow-up and strict return precautions. I discussed my clinical impression with patient and answered all questions. At this time, the evidence for any other entities in the differential is insufficient to warrant any further testing or ED observation. This was explained to the patient. The patient was advised that persistent or worsening symptoms require further evaluation. I confirmed the patient's understanding of this discussion. Critical Care Critical Care Time Critical Care Time: No
[2024-01-30] MEDS: LACTATED RINGERS 1000ML 1,000 ML 999 ML IV (09:17)
[2024-01-30] MEDS: KETOROLAC 30MG/ML VIAL 30 MG IV (09:17)
[2024-01-30] MEDS: ONDANSETRON 4MG/2ML VIAL 4 MG IV (09:17)
[2024-01-30 09:22] LABS: Microscopic, Urine URINE MICROSCOPIC (MICROSCOPIC)
[2024-01-30 09:24] LABS: Chloride 104 mmol/L (98-107); Potassium 4.6 mmoL/L (3.5-5.1); Sodium 136 mmol/L (136-145)
[2024-01-30 09:26] LABS: Basophils # 0.1 K/mm3 (0-0.2); Basophils % 1.3 % (0.1-2.0); Blood Urea Nitrogen 22 mg/dl (9-20); Creatinine Clearance Estimated 96 mL/min (50-200); Eosinophils # 0.3 K/mm3 (0.0-0.4); Eosinophils % 4.7 % (0.1-12.0); Estimated Glomerular Filt Rate 69 ml/min (>60); GFR (African American) 84 ML/MIN (>60); Hematocrit 49.8 % (42.0-52.0); Lymphocytes # 2.1 K/mm3 (0.7-4.5); Lymphocytes % 29.2 % (10-50); Mean Corpuscular HGB Conc 32.2 g/dL (31.8-35.4); Mean Corpuscular Volume 90.1 fl (80-94); Mean Platelet Volume 8.2 fl (7.4-10.4); Monocytes # 0.4 K/mm3 (0.1-1.0); Neutrophils # 4.2 K/mm3 (1.8-7.8); Neutrophils % 58.7 % (37.0-80.0); Platelet Count 229 K/mm3 (142-424); Red Blood Count 5.53 M/mm3 (4.60-6.20); Red Cell Distribution Width 14.8 % (11.5-17.5); White Blood Count 7.1 K/mm3 (4.8-10.8)
[2024-01-30 09:27] LABS: Alanine Aminotransferase 40 U/L (12-78); Albumin Level 4.3 g/dl (3.5-5.0); Albumin/Globulin Ratio 1.3 (1.1-1.8); Alkaline Phosphatase 53 U/L (38-126); Anion Gap 11.6 mEq/L (5-15); Aspartate Amino Transferase 37 U/L (17-59); Bilirubin,Total 0.6 mg/dl (0.2-1.3); Carbon Dioxide 25 mmol/L (22.0-30.0); Globulin 3.2 g/dL (1.3-3.2); Glucose 113 mg/dl (74-100); Total Protein,Serum 7.5 g/dl (6.3-8.2)
[2024-01-30 09:28] LABS: Calcium 9.3 mg/dl (8.4-10.2)
[2024-01-30 09:44] LABS: Appearance,Urine CLEAR (Clear); Bilirubin,Urine Negative (Negative); Blood, Urine 1+ (Negative); Color,Urine YELLOW (Yellow); Glucose,Urine (UA) Negative (Negative); Ketones,Urine Negative (Negative); Leukocyte Esterase,Urine Negative (Negative); Nitrate,Urine Negative (Negative); PH,Urine 5.5 (5.0-8.5); Protein,Urine Negative (Negative); Specific Gravity, Urine >= 1.030 (1.005-1.030); Urobilinogen,Urine 0.2 EU/dl (0.2)
--- NOTE | 2024-01-30 09:56 | CT_ITS ---
PROCEDURE INFORMATION: Exam: CT Abdomen And Pelvis Without Contrast Exam date and time: 01/30/2024 10:11 AM Age: 58 years old Clinical indication: Abdominal pain; Flank; Right; Prior surgery; Surgery date: 6+ months; Surgery type: Appendix and gb removed; Additional info: Flank pain TECHNIQUE: Imaging protocol: Computed tomography of the abdomen and pelvis without contrast. Radiation optimization: All CT scans at this facility use at least one of these dose optimization techniques: automated exposure control; mA and/or kV adjustment per patient size (includes targeted exams where dose is matched to clinical indication); or iterative reconstruction. COMPARISON: CT ABDOMEN PELVIS WO CON 03/30/2023 10:23 AM FINDINGS: Diaphragm: Small hiatal hernia Liver: Decreased density throughout the liver compatible with hepatic steatosis. Gallbladder and bile ducts: Cholecystectomy Pancreas: Pancreas unremarkable Spleen: Splenic granulomas Adrenal glands: Adrenal glands unremarkable. Kidneys and ureters: Bilateral bifid renal pelvis. nonobstructing calculus upper pole left kidney nonobstructing calculus upper pole right kidney. Partially obstructing 3 mm distal right ureteral calculus. Associated mild right hydroureteronephrosis involving the lower pole of the duplex right collecting system. Stomach and bowel: The moderate stool burden Appendix: No evidence of appendicitis. Intraperitoneal space: Unremarkable. No free air. No significant fluid collection. Vasculature: Scattered regions of atherosclerotic vascular calcification within the abdominal aorta and common iliac arteries. Lymph nodes: Unremarkable. No enlarged lymph nodes. Urinary bladder: Unremarkable as visualized. Reproductive: Prostatic calcifications. Mild prostatic enlargement. Bones/joints: Lumbar spondylosis with multilevel disc degeneration. Lumbar spondylosis with multilevel disc degeneration. . Soft tissues: Unremarkable. Other findings: Findings demonstrated on series 3, image number 122. IMPRESSION: 1. Partially obstructing 3 mm distal right ureteral calculus. Associated mild right hydroureteronephrosis involving the lower pole of the duplex right collecting system. 2. Bilateral bifid renal pelvis.
[2024-01-30 10:09] LABS: Bacteria,Urine Trace /lpf; Mucus,Urine Trace /lpf; WBC,Urine Occasional #/hpf (0-3)
[2024-01-30 10:10] LABS: Uric Acid Crystals,Urine 1+ /lpf
--- NOTE | 2024-01-30 11:39 | PC.NURSE ---
per radiology they are reading ct at this time
== END 2024-01-30 12:16 | disposition home or self-care (01) ==
PROVIDERS: Emergency Provider Emergency Medicine; PCP Family Medicine
DX: N13.0 Hydronephrosis with ureteropelvic junction obstruction (principal); R10.32 Left lower quadrant pain; M54.59 Other low back pain; K21.9 Gastro-esophageal reflux disease without esophagitis; I10 Essential (primary) hypertension; E03.9 Hypothyroidism, unspecified; E78.5 Hyperlipidemia, unspecified; Z87.442 Personal history of urinary calculi
CPT/HCPCS: 74176; 80053; 81001; 85025; 87086; 96361; 96374; 96375; 99284; J2405; J7120

== ENCOUNTER 2024-06-29 12:41 | Emergency (ER) | payer BC, SELFPAY ==
[2024-06-29 13:05] VITALS: BP 130/88; PULSE 74; RESP 16; TEMP 36.6; O2SAT 97; BMI 26.9
--- NOTE | 2024-06-29 13:17 | CT_ITS ---
PROCEDURE INFORMATION: Exam: CT Abdomen And Pelvis Without Contrast Exam date and time: 06/29/2024 1:29 PM Age: 59 years old Clinical indication: Abdominal pain; Flank; Left; Additional info: L flank pain multiple prev stones TECHNIQUE: Imaging protocol: Computed tomography of the abdomen and pelvis without contrast. Total images: 338 Radiation optimization: All CT scans at this facility use at least one of these dose optimization techniques: automated exposure control; mA and/or kV adjustment per patient size (includes targeted exams where dose is matched to clinical indication); or iterative reconstruction. COMPARISON: CT ABDOMEN PELVIS WO CON 01/30/2024 10:11 AM FINDINGS: Limitations: Examination limited by the lack of IV contrast. Liver: There is a diffuse decrease in hepatic parenchymal density, consistent with mild fatty infiltration. Gallbladder and biliary ducts: Status post cholecystectomy. Pancreas: Normal. No ductal dilation. Spleen: Normal. No splenomegaly. Adrenal glands: Normal. No mass. Kidneys and ureters: 1.3 cm calcification noted within the proximal left ureter with left obstructive uropathy. Punctate calcification noted within both kidneys. Bilateral perinephric fat stranding. Stomach and bowel: Unremarkable. No obstruction. No mucosal thickening. Appendix: No evidence of appendicitis. Intraperitoneal space: Normal. No significant fluid collection. Vasculature: Mild atherosclerotic disease. Lymph nodes: Unremarkable. No enlarged lymph nodes. Urinary bladder: Unremarkable as visualized. Reproductive: Prostate calcifications are present. Mild prostate enlargement. Bones/joints: Unremarkable. No acute fracture. Soft tissues: Soft tissues are normal. IMPRESSION: 1. 1.3 cm calcification noted within the proximal left ureter with left obstructive uropathy. 2. Punctate calcification noted within both kidneys. 3. Bilateral perinephric fat stranding. 4. There is a diffuse decrease in hepatic parenchymal density, consistent with mild fatty infiltration.
--- NOTE | 2024-06-29 13:18 | ED_ITS ---
Discharge Plan Disposition Patient Disposition: Home, Self-Care Prescriptions Prescriptions: New levofloxacin 750 mg tablet 750 mg PO DAILY 5 Days Qty: 5 0RF ondansetron 4 mg tablet,disintegrating 4 mg PO Q8H PRN (Reason: nausea and vomiting) 4 Days Qty: 12 0RF oxycodone 5 mg tablet 5 mg PO Q8H PRN (Reason: pain (scale score 7-10)) Qty: 6 0RF Rx Instructions: Pain refractory to Tylenol and ibuprofen No Action atorvastatin 40 mg tablet 40 mg PO DAILY tamsulosin [Flomax] 0.4 mg capsule 0.4 mg PO DAILY 90 Days Qty: 90 1RF lisinopril 5 mg tablet 5 mg PO DAILY levothyroxine 100 mcg tablet 100 mcg PO DAILY Referrals Follow up/Referrals: Dada Tesfaye MD [Primary Care Provider] - See instructions Activity Restrictions/Add. Instructions Additional Instructions/Restrictions: At this time it was felt you are safe to be discharged home. If new or worsening symptoms please do not hesitate to return the emergency department. For pain control please take Tylenol 1000 mg and ibuprofen 800 mg every 6 hours at the same time with a snack. For pain that does not resolve to an acceptable level take your oxycodone as prescribed. Take your Zofran for nausea and as discussed please try and get in with your current urologist as soon as you are able and if not please contact Dr. Butts as your kidney stone will almost certainly need to be broken up with lithotripsy. Clinical Impressions Clinical Impression: Left ureteral calculus Instructions Patient Instructions: DI for Low Back Pain Print Language Print Language: Croatian Discharge ED Provider: Dieter Santiago General Adult HPI General Chief complaint: Back Pain/Injury Stated complaint: pain in lower back pain Time Seen by Provider: 06/29/24 13:03 Mode of Arrival: Ambulatory Source of Information: Patient Limitations: No Limitations Description of Symptoms (Recalled from ER Triage Doc. by RN): Patient report left lower back pain. States he thinks that he has a kidney stone. Reports having kidney stones in the past and that this is what it feels like. History of Present Illness HPI narrative: Patient is a 59-year-old male past medical history of previous kidney stones who presents to the emergency department for evaluation of left flank pain. Onset was acute, since 7 AM this morning. It is left-sided lower flank pain feeling similar to his previous stones. Some stones have passed spontaneously however he has required lithotripsy before. No dysuria, no other acute complaints at this time. Related Data Home Medications ?Medication ?Instructions ?Recorded ?Confirmed lisinopril 5 mg tablet 5 mg PO DAILY High blood pressure 09/13/17 04/03/24 levothyroxine 100 mcg tablet 100 mcg PO DAILY THYROID 12/22/22 04/03/24 atorvastatin 40 mg tablet 40 mg PO DAILY 04/03/24 04/03/24 Previous Rx's ?Medication ?Instructions ?Recorded tamsulosin 0.4 mg capsule (Flomax) 0.4 mg PO DAILY 90 days #90 caps 04/03/24 levofloxacin 750 mg tablet 750 mg PO DAILY 5 days #5 tabs 06/29/24 ondansetron 4 mg disintegrating 4 mg PO Q8H PRN nausea and 06/29/24 tablet vomiting 4 days #12 tabs oxycodone 5 mg tablet 5 mg PO Q8H PRN pain (scale score 06/29/24 7-10) #6 tabs Allergies Allergy/AdvReac Type Severity Reaction Status Date / Time hydrocodone AdvReac Unknown CONSTIPATION Verified 04/03/24 09:02 (NORMAL SIDE EFFECT) [facility] Disclaimer: The information contained in this section may have been updated after the patient was seen, as this information can be updated by other users. Medical History Proctitis Cholecystectomy planned Kidney stone History of COVID-19 History of gastroesophageal reflux (GERD) Hypothyroid Allergies Hyperlipidemia Hypertension Surgical History H/O thyroidectomy H/O: vasectomy H/O lithotripsy History of appendectomy Family History Father Prostate cancer Lung cancer Mother Heart disease Social History Smoking Status: Never smoker alcohol intake: current alcohol intake frequency: a few times a week substance use type: denies use current occupational status: employed Travel in the last 8 weeks: None household members: family housing: house caffeine: No Other Medical History Have you received the Flu Vaccine for this season: No Have you received the Pneumonia Vaccine: No ROS Obtained: Yes Systems reviewed as appropriate & no additional complaints except as documented Physical Exam General General appearance: alert and in no apparent distress Head Head exam: atraumatic and normocephalic Eye Eye exam: Present PERRL ENT ENT exam: Present mucous membranes moist Neck Neck exam: Present normal inspection Chest Chest inspection: Present normal inspection and symmetric chest wall rise Respiratory Respiratory exam: Absent respiratory distress Cardiovascular Cardiovascular exam: Present regular rate and normal rhythm Abdominal Exam Abdominal exam: Present soft; Absent tenderness Extremities Exam Extremities exam: Present normal inspection Neurological Exam Neurological exam: Present alert Psychiatric Psychiatric exam: Present normal affect Skin Skin exam: Present warm and dry Medical Decision Making Medical Records Screening: Per USPSTF and CDC recommendations, given the prevalence of disease in our region, it is our hospital?s policy to screen for HIV and viral Hepatitis for all patients aged 18 and over and those with ongoing risk factors. [place] Inquiry Pt receiving controlled substance: No Vital Signs: 06/29/24 13:05 06/29/24 13:55 06/29/24 14:00 Temperature 97.9 F Temperature Source Oral Pulse Rate 68 64 Pulse Rate [Radial] 74 Respiratory Rate 16 Blood Pressure 114/75 113/76 Blood Pressure [Right Arm] 130/88 Blood Pressure Mean 88 88 Blood Pressure Mean [Right Arm] 102 Blood Pressure Source [Right Arm] Automatic Cuff Blood Pressure Position [Right Arm] Sitting 02 Sat by Pulse Oximetry 97 96 96 Oxygen Delivery Method Room Air Room Air Room Air 06/29/24 14:30 Temperature Temperature Source Pulse Rate 64 Pulse Rate [Radial] Respiratory Rate Blood Pressure 115/71 Blood Pressure [Right Arm] Blood Pressure Mean 83 Blood Pressure Mean [Right Arm] Blood Pressure Source [Right Arm] Blood Pressure Position [Right Arm] 02 Sat by Pulse Oximetry 97 Oxygen Delivery Method Room Air Lab Data Lab Results 06/29/24 13:04: Urine Color Yellow, Urine Appearance Clear, Urine pH 6.0, Ur Specific [place] >= 1.030, Urine Protein Trace, Urine Glucose (UA) Negative, Urine Ketones Negative, Urine Blood 3+ A, Urine Nitrate Negative, Urine Bilirubin Negative, Urine Urobilinogen 0.2, Ur Leukocyte Esterase Negative, Urine RBC 20-50, Urine WBC Occasional, Ur Squamous Epith Cells Occasional, Uric Acid Crystals 1+, Urine Bacteria 1+ 06/29/24 13:18: WBC 8.5, RBC 5.57, Hgb 15.9, Hct 48.9, MCV 87.7, MCH 28.6, MCHC 32.6, RDW 14.2, Plt Count 221, MPV 7.5, Neut % (Auto) 80.0, Lymph % (Auto) 12.6, [place] % (Auto) 6.1, Eos % (Auto) 0.6, Baso % (Auto) 0.6, Neut # (Auto) 6.8, Lymph # (Auto) 1.1, [place] # (Auto) 0.5, Eos # (Auto) 0.1, Baso # (Auto) 0.1, Sodium 137, Potassium 4.3, Chloride 104, Carbon Dioxide 26, Anion Gap 11.3, BUN 17, Creatinine 1.00, Estimated Creat Clear 104, Estimated GFR 77, Est GFR ( Amer) 93, Glucose 96, Calcium 8.8, Total Bilirubin 0.6, AST 38, ALT 40, Alkaline Phosphatase 50, Total Protein 7.5, Albumin 4.3, Globulin 3.2, Albumin/Globulin Ratio 1.3, Lipase 99 06/29/24 13:18 06/29/24 13:18 Orders (Tests/Meds): ED MEDICATIONS Discontinued Medications Generic Name Dose Route Start Last Admin Trade Name Jorgeq PRN Reason Stop Dose Admin Acetaminophen 1,000 mg 06/29/24 13:17 06/29/24 13:30 Acetaminophen 1,000mg/100ml Vial IV 06/29/24 13:18 1,000 mg ONCE ONE Administration Ketorolac Tromethamine 30 mg 06/29/24 13:17 06/29/24 13:31 Ketorolac 30mg/Ml Vial IV 06/29/24 13:18 30 mg ONCE ONE Administration Ondansetron HCl 4 mg 06/29/24 13:17 06/29/24 13:30 Ondansetron 4mg/2ml Vial IV 06/29/24 13:18 4 mg ONCE ONE Administration ORDERS Category Date Time Status CT abdomen pelvis wo con Stat Cat Scan 06/29/24 13:17 Completed CBC w/Auto Diff [Complete Blood Count Auto Diff] Stat Lab 06/29/24 13:18 Completed CMP [Comprehensive Metabolic Panel] Stat Lab 06/29/24 13:18 Completed HIV (1&2) Antibody Rapid Stat Lab 06/29/24 13:18 Received Hep C Ab with Reflex to RNA Stat Lab 06/29/24 13:18 Received Lipase Stat Lab 06/29/24 13:18 Completed UA [Urinalysis and Microscopic] Stat Lab 06/29/24 13:04 Completed Medical Decision Narrative: In summary patient is a 59-year-old male past medical history described above presents emergency department for evaluation of left flank pain in the setting of previous stones. Patient is hemodynamically stable nontoxic-appearing upon arrival, afebrile. History and physical consistent with ureterolithiasis, differential includes urinary tract infection, lumbar ago, among others. Workup will be conducted with hematologic labs, urinalysis, CT abdomen pelvis stone protocol. Initial inventions include IV Tylenol, Toradol. Initial work reviewed by me, no significant leukocytosis, no KYLHA or critical electrolyte abnormality. Urinalysis interpreted by me, 1+ bacteria, overt hematuria leuk esterase negative nitrate negative. CT imaging informally interpreted by me, large left proximal ureteral stone. Formal CT read 1.3 cm calcification noted in the left proximal ureter with obstructive uropathy and bilateral perinephric fat stranding of undetermined etiology, diffuse decrease in hepatic parenchymal density consistent with mild fatty infiltration. Upon repeat evaluation patient was well-appearing with largely solution of his pain. Given this shared decision-making discussion was had and he wishes to try and contact his current urologist for rapid outpatient follow-up and in the event that he is not able to do that he will call and schedule appoint with Dr. Butts for which he was given his information. Given that he has bacteria in his urine without overt infection abdomen abundance of caution patient will be given a short course of levofloxacin. Patient was given return precautions verbalized understanding. Critical Care Critical Care Time Critical Care Time: No
[2024-06-29 13:30] LABS: Basophils # 0.1 K/mm3 (0-0.2); Basophils % 0.6 % (0.1-2.0); Eosinophils # 0.1 K/mm3 (0.0-0.4); Eosinophils % 0.6 % (0.1-12.0); Hematocrit 48.9 % (42.0-52.0); Hemoglobin 15.9 g/dL (14.1-18.0); Lymphocytes # 1.1 K/mm3 (0.7-4.5); Lymphocytes % 12.6 % (10-50); Mean Corpuscular HGB Conc 32.6 g/dL (31.8-35.4); Mean Corpuscular Hemoglobin 28.6 pg (27.0-31.2); Mean Corpuscular Volume 87.7 fl (80-94); Mean Platelet Volume 7.5 fl (7.4-10.4); Monocytes # 0.5 K/mm3 (0.1-1.0); Monocytes % 6.1 % (1.7-9.3); Neutrophils # 6.8 K/mm3 (1.8-7.8); Platelet Count 221 K/mm3 (142-424); Red Blood Count 5.57 M/mm3 (4.60-6.20); Red Cell Distribution Width 14.2 % (11.5-17.5); White Blood Count 8.5 K/mm3 (4.8-10.8)
[2024-06-29] MEDS: ACETAMINOPHEN 1,000MG/100ML VIAL 1000 MG IV (13:30)
[2024-06-29] MEDS: ONDANSETRON 4MG/2ML VIAL 4 MG IV (13:30)
[2024-06-29] MEDS: KETOROLAC 30MG/ML VIAL 30 MG IV (13:31)
[2024-06-29 13:33] LABS: Albumin Level 4.3 g/dl (3.5-5.0); Chloride 104 mmol/L (98-107); Potassium 4.3 mmoL/L (3.5-5.1); Sodium 137 mmol/L (136-145)
[2024-06-29 13:35] LABS: Blood Urea Nitrogen 17 mg/dl (9-20); Creatinine Clearance Estimated 104 mL/min (50-200); Estimated Glomerular Filt Rate 77 ml/min (>60); GFR (African American) 93 ML/MIN (>60)
[2024-06-29 13:36] LABS: Alanine Aminotransferase 40 U/L (12-78); Albumin/Globulin Ratio 1.3 (1.1-1.8); Alkaline Phosphatase 50 U/L (38-126); Anion Gap 11.3 mEq/L (5-15); Aspartate Amino Transferase 38 U/L (17-59); Bilirubin,Total 0.6 mg/dl (0.2-1.3); Calcium 8.8 mg/dl (8.4-10.2); Carbon Dioxide 26 mmol/L (22.0-30.0); Globulin 3.2 g/dL (1.3-3.2); Glucose 96 mg/dl (74-100); Lipase 99 U/L (23-300); Total Protein,Serum 7.5 g/dl (6.3-8.2)
[2024-06-29 13:49] LABS: Microscopic, Urine URINE MICROSCOPIC (MICROSCOPIC)
[2024-06-29 13:55] VITALS: BP 114/75; PULSE 68; O2SAT 96
[2024-06-29 13:59] LABS: Appearance,Urine CLEAR (Clear); Bilirubin,Urine Negative (Negative); Blood, Urine 3+ (Negative); Color,Urine YELLOW (Yellow); Glucose,Urine (UA) Negative (Negative); Ketones,Urine Negative (Negative); Leukocyte Esterase,Urine Negative (Negative); Nitrate,Urine Negative (Negative); Protein,Urine TRACE (Negative); Specific Gravity, Urine >= 1.030 (1.005-1.030); Urobilinogen,Urine 0.2 EU/dl (0.2)
[2024-06-29 14:00] VITALS: BP 113/76; PULSE 64; O2SAT 96
[2024-06-29 14:08] LABS: Bacteria,Urine 1+ /lpf; RBC,Urine 20-50 #/hpf (0-3); Squamous Epithelial Cell,Urine Occasional #/hpf (0-5); Uric Acid Crystals,Urine 1+ /lpf; WBC,Urine Occasional #/hpf (0-3)
[2024-06-29 14:30] VITALS: BP 115/71; PULSE 64; O2SAT 97
--- NOTE | 2024-06-29 14:45 | PC.NURSE ---
ATTEMPTED MULTIPLE TIMES TO REACH UROLOGY, MESSAGE LEFT WITH OFFICE TO MAKE APPOINTMENT
[2024-06-29 15:37] VITALS: BP 115/71; PULSE 64; RESP 16; TEMP 36.6; O2SAT 97
[2024-06-29 16:44] LABS: HIV (1&2) Antibody Rapid NONREACTIVE (NONREACTIVE)
[2024-06-30 05:56] LABS: HCV Ab Non Reactive (Non Reactive)
== END 2024-06-29 15:38 | disposition home or self-care (01) ==
LOC: UTC 12:46 → ER 12:59
PROVIDERS: Emergency Provider Emergency Medicine; PCP Family Medicine
DX: N20.1 Calculus of ureter (principal); M54.50 Low back pain, unspecified; R10.9 Unspecified abdominal pain
CPT/HCPCS: 74176; 80053; 81001; 83690; 85025; 86803; 87389; 96374; 96375; 99284; J0131; J1885; J2405

== ENCOUNTER 2024-10-09 13:47 | Outpatient (CLI) | payer BC, SELFPAY ==
--- NOTE | 2024-10-09 13:49 | US_ITS ---
FINAL REPORT CLINICAL HISTORY: CALCULUS OF URETER COMPARISON: None FINDINGS: RENAL ULTRASOUND Ultrasound images of the kidneys were obtained. Limited images of the liver parenchyma demonstrate normal echogenicity. The right kidney measures 13.3 cm in length. The left kidney measures 13.4 cm in length. There is no hydronephrosis. There are small echogenic shadowing foci in both kidneys probably due to small kidney stones. IMPRESSION: Small echogenic shadowing foci in both kidneys probably due to small kidney stones. Correlation with noninfused CT scan may be of value. Reviewed, Interpreted and Dictated by Devante Trinh MD Transcribed by Mckenna Murray Authenticated and [facility]
== END 2024-10-09 23:59 | disposition home or self-care (01) ==
LOC: RAD 13:47
PROVIDERS: PCP Family Medicine; Visit Provider Urology
DX: N20.1 Calculus of ureter (principal)
CPT/HCPCS: 76770

== ENCOUNTER 2025-08-09 14:48 | Outpatient (CLI) | payer BC, SELFPAY ==
--- NOTE | 2025-08-09 14:54 | CA_ITS ---
FINAL REPORT TECHNIQUE: extremity venous duplex was performed in the left leg with augmentation and compression. CLINICAL HISTORY: PT C/O KNOT BACK OF LEFT CALF HAS BEEN PRESENT FOR AWHILE COMPARISON: None FINDINGS: Proper flow is seen throughout the left deep venous system. There is no evidence of deep venous thrombosis. In the region of interest in the posterior calf soft tissues, there is superficial thrombophlebitis present. IMPRESSION: no deep venous thrombosis in the left lower extremity. Superficial thrombophlebitis is present in the posterior soft tissues of the calf. Reviewed, Interpreted and Dictated by Devante Trinh MD Transcribed by Iris Milian Authenticated and [facility]
--- NOTE | 2025-08-09 15:13 | XR_ITS ---
FINAL REPORT TECHNIQUE: 5 views CLINICAL HISTORY: LEFT SIDED SCIATICA COMPARISON: None FINDINGS: AP, oblique and lateral views of the lumbar spine were obtained. There is no prior exam for comparison. There is no acute fracture or malalignment. Vertebral body height is preserved. There are mild osteophytes noted anteriorly throughout the lumbar spine. There is mild loss of height of the L5-S1 disc space. No acute paraspinal abnormality. IMPRESSION: Mild degenerative change, with no acute process. Reviewed, Interpreted and Dictated by Devante Trinh MD Transcribed by Iris Milian Authenticated and [facility]
== END 2025-08-09 23:59 | disposition home or self-care (01) ==
LOC: RT 14:50
PROVIDERS: PCP Family Medicine; Visit Provider Family Medicine
DX: M47.26 Other spondylosis with radiculopathy, lumbar region (principal); I80.02 Phlebitis and thrombophlebitis of superficial vessels of left lower extremity
CPT/HCPCS: 72110; 93971